=== PATIENT | female | born 2000 | race Two or more races ===

== ENCOUNTER 2024-12-30 08:27 | Emergency (ER) | payer MEDICAID, OTHER ==
[~2024-12-30] VITALS: Ht 149.9 cm; Wt 81.5 kg
--- NOTE | 2024-12-30 08:56 | ED.PDOC ---
Back pain HPI HPI Comments 24-year-old female presents here with right lower back pain that started yesterday when she was working out. She states she was lifting up weights and after she put a weight down she felt pain to the right side. She states she does occasionally feel numbness tingling to the right leg it is not constant. She states she does feel the pain is positional. Denies any weakness to 1 arm or 1 leg. Patient has not taken anything for the pain as she is and did not know what she could take. Denies that she could be . States last menstrual period was 2 weeks ago. Denies any recent cough cold runny nose fever or chills. Denies any dysuria. Chief Complaint: Back Pain Time Seen by MD: 08:33 Allergies: Coded Allergies: Povidone Iodine (Verified Allergy, Unknown, 12/30/24) Mode of Arrival: Ambulatory Past Medical History Past Medical History (Other): Denies past medical history Surgical History (Other): Family History Family History: Reviewed,noncontributory to illness Social History Smoker: Non-Smoker Alcohol: Denies ETOH Use Drugs: Denies Drug Use All Other Systems: Reviewed and Negative Physical Exam General Appearance: No Apparent Distress, Normal HEENT: Normal ENT Inspection, Pharynx Normal, TMs Normal Neck: Full Range of Motion, Non-Tender, Normal, Normal Inspection Respiratory: Chest Non-Tender, Lungs Clear, No Accessory Muscle Use, No Respiratory Distress, Normal Breath Sounds Cardiovascular: No Edema, No JVD, No Murmur, No Gallop, Normal Peripheral Pulses, Regular Rate/Rhythm Breast Exam: Deferred Gastrointestinal: No Organomegaly, Non Tender, No Pulsatile Mass, Normal Bowel Sounds, Soft Genitalia: Deferred Pelvic: Deferred Rectal: Deferred Extremities: No calf tenderness, Normal capillary refill, Normal inspection, Normal range of motion, Non-tender, No pedal edema, Other (Tenderness to palpation to the right lower back. Positive straight leg test. 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 Was a procedure done?: No Back Pain Differential Dx Differential Diagnosis: N/A Other Differential Diagnosis Sciatica, pyelonephritis,, UTI, , herniated disc, trauma X-Ray, Labs, Meds, VS Vital Signs Date Time Temp Pulse Resp B/P (MAP) Pulse Ox O2 Delivery O2 Flow Rate FiO2 12/30/24 11:03 97.8 73 17 100/56 (71) 97 97.8 12/30/24 09:16 82 17 97 Room Air* 0 21 12/30/24 09:16 98.4 82 17 100/63 (75) 97 98.4 12/30/24 08:46 98.4 91 17 120/87 (98) 97 98.4 Current Medications Medications (Trade) Dose Ordered Sig/Derrick Route Start Time Stop Time Status Last Admin Ketorolac Tromethamine (Toradol Injection) 60 mg ONCE ONCE IM 12/30/24 09:00 12/30/24 09:01 DC 12/30/24 09:15 Acetaminophen/ Hydrocodone Bitart ([place] 5/325MG Tab) 1 tab ONCE ONCE PO 12/30/24 10:00 12/30/24 10:01 DC 12/30/24 10:10 Prednisone 20 mg ONCE ONCE PO 12/30/24 10:00 12/30/24 10:01 DC 12/30/24 10:09 24-year-old female presents here with right lower back pain. Suspect herniated disc, with combination of musculoskeletal pain and some sciatica. At this time I have given her Toradol IV in the ER. Advised her it was okay to take ibupr ofen while . Advised her to use ice packs, or heat on her lower back. To rest. Advised her if she would improve in a week or so. Advised her if her symptoms continue she may require physical therapy. Doubt acute fracture at this time. Considered possible , UTI. Patient states however she had a menstrual cycle 2 weeks ago. Denies any dysuria. I have given the patient Toradol without improvement. Patient was then given 20 mg prednisone and [place]. Continues to have pain. I have now given her Dilaudid IM and Zofran. I spoke with the patient again she states that prior to lifting weights she had no symptoms at all. While she was lifting weights she began to have pain to her right back that was sharp. Pain is worse with sitting standing and movement. At this time given that she is has been limited on dosages. I have discharged her home with Crist[facility]bal Stanton and Colace. Advised her to take ibuprofen at home. I will be discharging her home. Advised her to return to the ER if symptoms worsen or persist. Time of 1ST Reevaluation: 09:45 Reevaluation 1ST: Improved Time of 2ND Reevaluation: 11:12 Reevaluation 2ND: Unchanged Patient Education/Counseling: Diagnosis, Treatment Family Education/Counseling: No Family Present SEPSIS Sepsis Screen Date sepsis recognized/suspect: Dec 30, 2024 Time Sepsis recognized/suspect: 830 Recent Procedure: No On Antibiotic Therapy: No Respiratory Rate >20: No Heart Rate >90: Yes Temp<36 C (96.8 F) or >38.3 C: No SBP <90 or MAP <65 mmHG: No New Acute Mental Status Change: No Is the patient on CPAP, BIPAP,: No Vital Signs Date Time Temp Pulse Resp B/P (MAP) Pulse Ox O2 Delivery O2 Flow Rate FiO2 12/30/24 11:03 97.8 73 17 100/56 (71) 97 97.8 12/30/24 09:16 82 17 97 Room Air* 0 21 12/30/24 09:16 98.4 82 17 100/63 (75) 97 98.4 12/30/24 08:46 98.4 91 17 120/87 (98) 97 98.4 Medications Medications Dose Ordered Sig/Derrick Route Start Time Stop Time Status Last Admin Dose Admin Acetaminophen/ Hydrocodone Bitart 1 tab ONCE ONCE PO 12/30/24 10:00 12/30/24 10:01 DC 12/30/24 10:10 Ketorolac Tromethamine 60 mg ONCE ONCE IM 12/30/24 09:00 12/30/24 09:01 DC 12/30/24 09:15 Prednisone 20 mg ONCE ONCE PO 12/30/24 10:00 12/30/24 10:01 DC 12/30/24 10:09 Departure 1 Departure Time of Disposition: 13:15 Impression: Primary Impression: Lumbar sprain Qualified Codes: S33.5XXA - Sprain of ligaments of lumbar spine, initial encounter Additional Impression: Lumbar radiculopathy Disposition: HOME / SELF CARE / HOMELESS Condition: Stable Additional Instructions: Follow up with the primary care physician in 2-3 days. Return to the ER if symptoms worsen or persist. You can take ibuprofen 600 mg 3 to 4 times a day as needed for pain along with the pain medications I prescribed you. e-Prescriptions Docusate Sodium (Colace) 100 Mg Cap 100 MG PO B.i.d. for 5 Days, #10 CAP Prov: KATIE PRINGLE MD 12/30/24 Ondansetron Odt 4MG Tab (ZOFRAN PO) 4 Mg Tb 4 MG PO Q8HPRN PRN for 5 Days, #15 TAB ODT TAB-DISSOLVE IN MOUTH, THEN SWALLOW Prov: KATIE PRINGLE MD 12/30/24 Hydrocodone-Acetaminophen (Hydrocodone Bitartrate/AC 5-325 mg) 1 Tab Tab 1 TAB PO Q6HPRN PRN for 5 Days, #20 TAB Prov: KATIE PRINGLE MD 12/30/24 Discharged With: Self, Relative (Mother) Critical Care Note Critical Care Time?: No Stability Stability form required: No Heart Score Heart Score: Heart Score Response (Comments) Value History N/A 0 EKG N/A 0 Age N/A 0 Risk Factors N/A 0 Troponin N/A 0 Total 0 KATIE PRINGLE MD Dec 30, 2024 08:56
[2024-12-30] MEDS: KETOROLAC TROMETH 60MG/2ML VIAL IM ONE (09:15)
[2024-12-30 09:16] VITALS: PULSE 82; RESP 17; O2SAT 97
[2024-12-30] MEDS: predniSONE 20 MG TAB PO ONE (10:09)
[2024-12-30] MEDS: HYDROcodone-ACET 5/325MG TAB PO ONE (10:10)
[2024-12-30 11:03] VITALS: TEMP 97.8
[2024-12-30] MEDS ORDERED: ZOFR4T PO (13:23)
[2024-12-30] MEDS ORDERED: HYDR-4902 PO (13:23)
[2024-12-30] MEDS ORDERED: DOCU-94 PO (13:23)
[2024-12-30] MEDS: ONDANSETRON ODT 4 MG TAB PO ONE (13:44)
[2024-12-30 13:46] VITALS: O2SAT 99
[2024-12-30] MEDS: HYDROmorphone HCL 2 MG/ML VL/or syr IM ONE (13:46)
[2024-12-30 14:13] VITALS: BP 124/79; PULSE 76; RESP 16
== END 2024-12-30 14:15 | disposition home or self-care (01) ==
LOC: ER 08:27
DX: S33.5XXA Sprain of ligaments of lumbar spine, initial encounter (principal); M54.16 Radiculopathy, lumbar region; Z88.8 Allergy status to other drugs, medicaments and biological substances; X50.0XXA Overexertion from strenuous movement or load, initial encounter; Y93.89 Activity, other specified; Y92.89 Other specified places as the place of occurrence of the external cause; Y99.8 Other external cause status
CPT/HCPCS: 96372; 99285; J1171; J1885; J7512; Q0162